=== PATIENT | female | born 1970 | race Caucasian/White ===

== ENCOUNTER 2024-11-08 13:03 | Emergency (ER) | payer OTHER, SELFPAY ==
[2024-11-08 13:04] VITALS: BP 167/98; PULSE 93; RESP 18; TEMP 36.6; O2SAT 97; BMI 35.0
--- NOTE | 2024-11-08 13:17 | RAD_ITS ---
EXAM: XR Lumbosacral Spine Flexion/Extension Only, 2 or 3 Views CLINICAL INDICATION: LEFT SIDE BACK PAIN TECHNIQUE: Lateral flexion/extension views of the lumbar spine and sacrum. COMPARISON: No relevant prior studies available. FINDINGS: VERTEBRAE: Facet arthropathy of L2-S1. No acute fracture. Normal sagittal alignment. No instability. SACRUM/COCCYX: Unremarkable as visualized. No acute fracture. DISC SPACES: No acute findings. No significant narrowing. SOFT TISSUES: Unremarkable. RAD/L/S Spine Min 4 Views IMPRESSION: No acute findings in the lumbar spine. Reading Location: [facility]
[2024-11-08] MEDS: Ondansetron ODT 4 MG Tablet PO (13:24)
[2024-11-08] MEDS: predniSONE 20 MG Tablet 40 MG PO (13:24)
[2024-11-08] MEDS: Orphenadrine 60 MG/2 ML Ampul 30 MG IM (13:25)
[2024-11-08] MEDS: morphine 10 MG/ML Syringe IM (13:25)
--- NOTE | 2024-11-08 13:29 | EDS_ITS ---
HPI History of Present Illness Chief Complaint: Back Narrative Narrative: Patient is a 54-year-old female with no known significant past medical history who presented to the emergency department with a chief complaint of left-sided back pain. Patient states that earlier in the week she bent over to pick something off the floor and felt something pull in her back. States that immediately she had pain and notes that originally her pain started to improve however she states that she turned to wipe her self on the toilet and noted that this flared her back up. States that she called a number and they advised her to take ibuprofen however that she did not get relief they advised her to come to the emergency department to be evaluated which she did here today. Patient states that she is urinating normally for self having normal bowel movements. [facility] Medical History (Updated 11/08/24 @ 14:[address] Itz Gunn, DO) Migraines Anxiety and depression Home Medications ?Medication ?Instructions ?Recorded ?Last Taken ?Type cyclobenzaprine 5 mg tablet 5 mg PO TID PRN muscle spa sm #20 11/08/24 Unknown Rx tabs fluoxetine 40 mg capsule 40 mg PO DAILY 11/08/24 Unkn own History lidocaine 5 % topical patch 1 patch topical DAILY #30 ea 11/08/24 Unknown Rx methylprednisolone 4 mg tablets in See Rx Instructions PO .COMPLEX 11/08/24 Unknown Rx a dose pack #21 tabs ondansetron 4 mg disintegrating 4 mg PO Q6H PRN nausea and 11/08/24 Unknown Rx tablet vomiting #20 tabs oxycodone-acetaminophen 5 mg-325 1 tab PO Q6H 3 days # 12 tabs 11/08/24 Unknown Rx mg tablet (Endocet) topiramate 25 mg tablet 25 mg PO BID 11/08/24 Unknow n History Allergy/AdvReac Type Severity Reaction Status Date / Time No Known Allergies Allergy Verified 11/08/24 13:05 Surgical History (Updated 11/08/24 @ 13:35 by Joyce Mccarty) History of tonsillectomy Social History (Updated 11/08/24 @ 13:35 by Joyce Mccarty) household members: family housing: house current occupational status: employed Smoking Status: Never smoker ROS ROS ED ROS Narrative Constitutional: Denies fevers, chills, headaches Eyes: Denies change in vision double vision blurry vision Cardiovascular: Denies chest pain Respiratory: Denies coughing shortness of breath Abdomen: Denies abdominal pain nausea vomit diarrhea : States that she is urinating normally for self as noted above denies any oth er urinary symptoms Neurological: Denies numbness, weakness, tingling Musculoskeletal: Complains of left lower back pain states that radiates into her buttock region does not go down her leg Skin: Denies any rashes or lesions EXAM Physical Exam Narrative Exam Narrative: General: Patient was lying in bed rest comfortably did not appear to be in acute distress Head: Atraumatic, normocephalic Eyes: PERRL bilateral, EOMI bilateral, no conjunctival injection noted Neck: Soft, supple, trachea midline Cardiovascular: Regular in rhythm Abdomen: Soft, nondistended, nontender to palpation Musculoskeletal: No tenderness palpation midline of the thoracolumbar spine, patient has some tenderness to palpation over the left quadratus lumbar region Extremities: +5/5 strength noted in the bilateral upper and lower extremities, radial pulses +2/4 in the about upper extremities Neurological: Patient follow commands knew that she was at [facility] year is 2024. No saddle anesthesia noted Skin: Warm, dry, intact Const Vital Signs: 11/08/24 13:04 Temperature 98 F Temperature Source Oral Pulse Rate 93 Respiratory Rate 18 Blood Pressure 167/98 H Blood Pressure Mean 121 Pulse Ox 97 Oxygen Delivery Method Room Air MDM MDM MDM Narrative Medical decision making narrative: Patient is a 54-year-old female who presents to the emergency department the chief complaint of back pain. Patient will have a workup performed here on the differential diagnose includes but not limited to musculoskeletal strain, compression fracture although feel this less likely as she had no specific trauma to her lower back. Once workup is obtained reviewed she will be reevaluated. Patient will given IM morphine, oral Zofran, prednisone and Norflex. Patient's x-ray of the lumbar spine was reviewed myself and by radiology showed no acute findings in the lumbar spine. Reevaluation the patient and she is feeling better she would like to go home at this point in time. Did discuss results with the patient. Advised her to use multimodal pain therapy with rotating Tylenol ibuprofen [id number], using the Lidoderm patches, taking the muscle laxer, Medrol Dosepak, Percocet and Zofran as prescribed. She is advised to follow-up with her physician outpatient setting and return with worsening symptoms or concerns. She is agreeable this plan all question concerns answered she was discharged home in stable condition. Radiography Diagnostic Testing: Clinical Impression(s) from Imaging Studies Lumbar Spine X-Ray 11/08/24 13:17 IMPRESSION: No acute findings in the lumbar spine. Reading Location: [facility] Discharge Plan Triage Chief Complaint: Back ED Provider: Itz Gunn Dx/Rx/DC Orders Clinical Impression: Back pain, Musculoskeletal strain Prescriptions: New lidocaine 5 % adhesive patch,medicated 1 patch topical DAILY Qty: 30 0RF Rx Instructions: leave on most painful area for up to 12 hrs cyclobenzaprine 5 mg tablet 5 mg PO TID PRN (Reason: muscle spasm) Qty: 20 0RF oxycodone-acetaminophen [Endocet] 5-325 mg tablet 1 tab PO Q6H 3 Days Qty: 12 0RF ondansetron 4 mg tablet,disintegrating 4 mg PO Q6H PRN (Reason: nausea and vomiting) Qty: 20 0RF methylprednisolone 4 mg tablets,dose pack See Rx Instructions .ROUTE .COMPLEX Qty: 21 0RF Rx Instructions: for 6 days No Action fluoxetine 40 mg capsule 40 mg PO DAILY topiramate 25 mg tablet 25 mg PO BID Primary Care Provider: Shara Isaacs Referrals: Shara Isaacs MD [Primary Care Provider] - Activity Restrictions/Additional Instructions: Your x-ray of your back was normal today. Follow-up with your doctor in the outpatient setting return with worsening symptoms or any other concerns. Use a multimodal pain therapy approach which will include rotating Tylenol and Profen [id number] when you do this you can take something every 3 hours with max dose Tylenol 4000 mg max dose of ibuprofen 3200 mg. Use the Lidoderm patch as prescribed as well as the muscle relaxer. Use the Endocet/Percocet and Zofran for severe pain. Do not operate anything under the influence of these medications as it can make you sleepy. Print Language: [place] Disposition Disposition: Home, Self Care
[2024-11-08 14:21] VITALS: BP 154/86; PULSE 89; RESP 16; TEMP 36.7; O2SAT 99
== END 2024-11-08 14:21 | disposition home or self-care (01) ==
PROVIDERS: Emergency Provider Emergency Medicine; PCP Internal Medicine; Visit Provider Emergency Medicine
DX: S39.012A Strain of muscle, fascia and tendon of lower back, initial encounter (principal); Z79.899 Other long term (current) drug therapy; X58.XXXA Exposure to other specified factors, initial encounter
CPT/HCPCS: 72110; 96372; 99282